=== PATIENT | male | born 1990 | race African-American/Black ===

== ENCOUNTER 2021-03-16 04:54 | Emergency (ER) | payer MEDICAID ==
[~2021-03-16] VITALS: Ht 170.2 cm; Wt 65.0 kg
[2021-03-16 04:57] VITALS: BP 154/84
[2021-03-16] MEDS ORDERED: IBUPROFEN 600MG TABLET PO STA (05:24)
[2021-03-16] MEDS ORDERED: LORAZEPAM 0.5MG TABLET PO ONE (05:30)
[2021-03-16] MEDS ORDERED: LORAZEPAM 1MG TABLET PO ONE (06:00)
[2021-03-16] MEDS ORDERED: IBUP-2029 MT (08:33)
== END 2021-03-16 08:58 | disposition home or self-care (01) ==
LOC: ER 04:54
DX: R07.89 Other chest pain (principal); F12.10 Cannabis abuse, uncomplicated; F15.10 Other stimulant abuse, uncomplicated; F41.9 Anxiety disorder, unspecified; J45.909 Unspecified asthma, uncomplicated
CPT/HCPCS: 71045; 93005; 99283